=== PATIENT | male | born 2000 | race Caucasian/White ===

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

== ENCOUNTER 2022-03-14 02:18 | Emergency (ER) | payer MEDICAID, SELFPAY ==
[2022-03-14 02:34] VITALS: BP 128/53; PULSE 52; RESP 16; TEMP 36.8; O2SAT 98; BMI 28.9
--- NOTE | 2022-03-14 03:18 | ED.WOUNDLAC ---
HPI - Wound/Laceration General Chief Complaint: Extremity Injury, Lower Stated Complaint: finger laceration Time Seen by Provider: 03/14/22 02:49 Source: patient Mode of arrival: ambulatory History of Present Illness HPI narrative: cut R index finger on can of corn at home Onset (ago): minute(s) (prior to arrival ) Extremity Location: right: hand (index finger) Place: home Patient tetanus UTD: No Context: accidental (can of corn) Associated symptoms: pain Treatments prior to arrival: bandage Related Data Previous Rx's Medication Instructions Recorded acetaminophen 500 mg tablet 500 mg PO Q6H PRN pain or fever 12/12/20 (Tylenol Extra Strength) #20 tabs naproxen 500 mg tablet 500 mg PO BID PRN pain 10 days #20 12/12/20 tabs Allergies Allergy/AdvReac Type Severity Reaction Status Date / Time No Known Allergies Allergy Verified 09/19/21 13:21 Review of Systems Review of Systems: Constitutional : No Fever, No Chills, Cardiovascular : No Chest Pain, No SOB Respiratory : No Dyspnea Gastrointestinal : No abdominal pain Musculoskeletal : No Joint Swelling Skin : No rash, positive skin laceration Neuro : No Weakness, No Numbness PMFSH Past Medical History Medical History No known health problems Social History Social History (Updated 03/14/22 @ 03:26 by Breann Bonner DO) Patient Tobacco Use Status: Never used Tobacco Advance Directives: No Advance Directives Information Provided: Yes Current occupational status: other Current occupation: rt handed Physical Exam Vital Signs: Vital Signs: Last Vital Signs Temp 98.2 F 03/14/22 02:34 Pulse 52 03/14/22 02:34 Resp 16 03/14/22 02:34 BP 128/53 L 03/14/22 02:34 Pulse Ox 98 03/14/22 02:34 O2 Del Method 03/14/22 02:34 BMI result Body Mass Index 28.9 Appearance: Alert. Oriented X3. No acute distress. Eyes: Pupils equal, round and reactive to light. ENT: Pharynx normal. Neck: Normal inspection. Neck supple. CVS:Pulses normal. Respiratory: No respiratory distress. Skin: Skin warm and dry. Normal skin color. Extremities: No lower extremity edema. R index finger tip 1cm circular avulsion near nail wound edges approximated - NV intact Neuro: Oriented X 3. No motor deficit. No sensory deficit. MDM - Wound/Laceration MDM Narrative Medical decision making narrative: 22 yo male no PMH here with very superficial skin avulsion tip of R index finger from can of corn will require dermabond and update tdap. NV intact. Procedures Laceration Laceration 1: Site: hand (R index finger) Side (If applicable): right Size (cm): 1 Description: flap Depth: simple, single layer Pre-repair: wound explored and irrigated extensively Skin layer closed with: other (dermabond) Discharge Plan Discharge Clinical Impression: Avulsion of skin Patient Disposition: Home, Self-Care Instructions: Skin Avulsion (ED), Skin Adhesive Care (ED) Additional Instructions: return to ED for any worsening symptoms or concerns okay to get wet in 48 hours (only to shower or if soiled) otherwise keep clean and dry monitor for redness, fevers, yellow drainage glue will fall off in 5 to 7 days Prescriptions: No Action acetaminophen [Tylenol Extra Strength] 500 mg tablet 500 mg PO Q6H PRN (Reason: pain or fever) Qty: 20 0RF naproxen 500 mg tablet 500 mg PO BID PRN (Reason: pain) 10 Days Qty: 20 0RF
[2022-03-14] MEDS: Diphth,Pertus(ACell),Tet Adult 0.5 ML SYRINGE IM (03:31)
== END 2022-03-14 03:37 | disposition home or self-care (01) ==
PROVIDERS: Emergency Provider Emergency Medicine; PCP Nurse Practitioner Family
DX: S61.210A Laceration without foreign body of right index finger without damage to nail, initial encounter (principal); S60.410A Abrasion of right index finger, initial encounter; W26.8XXA Contact with other sharp object(s), not elsewhere classified, initial encounter; Y93.9 Activity, unspecified; Y92.9 Unspecified place or not applicable; Y99.9 Unspecified external cause status; Z79.899 Other long term (current) drug therapy
CPT/HCPCS: 12041; 90471; 90715; 99282; 99284

== ENCOUNTER 2022-05-16 13:56 | Emergency (ER) | payer MEDICAID, SELFPAY ==
[2022-05-16 13:57] VITALS: BP 149/53; PULSE 69; RESP 18; TEMP 36.4; O2SAT 98; BMI 25.7
--- NOTE | 2022-05-16 15:43 | ED_ITS ---
HPI - Extremity Injury (Lower) General Chief Complaint: Extremity Injury, Lower Stated Complaint: R leg pain Time Seen by Provider: 05/16/22 15:11 Source: patient Mode of arrival: ambulatory History of Present Illness HPI Narrative: 22-year-old male with no significant past medical history presenting to the ED complaining of right thigh pain/ spasming and tightening up s/p lifting weights at the gym. States played basketball for 2 hours and was doing leg exercises 1 quad tightened up. Reports symptomatic improvement at present. Denies direct trauma, fall, injury, numbness, tingling, weakness complaint: thigh injury Onset (ago): hour(s) Related Data Previous Rx's Medication Instructions Recorded acetaminophen 500 mg tablet 500 mg PO Q6H PRN pain or fever 12/12/20 (Tylenol Extra Strength) #20 tabs naproxen 500 mg tablet 500 mg PO BID PRN pain 10 days #20 12/12/20 tabs acetaminophen 500 mg tablet 500 mg PO Q6H PRN fever or pain 05/16/22 (Tylenol Extra Strength) #14 tabs cyclobenzaprine 5 mg tablet 5 mg PO Q8H PRN pain (scale score 05/16/22 7-10) 5 days #14 tabs lidocaine 5 % topical patch 1 patch topical DAILY PRN pain #30 05/16/22 (Lidoderm) ea naproxen 500 mg tablet 500 mg PO BID PRN pain 10 days #20 05/16/22 tabs Allergies Allergy/AdvReac Type Severity Reaction Status Date / Time No Known Allergies Allergy Verified 09/19/21 13:21 Review of Systems Review of Systems: Constitutional: No Fever, No Chills ENT/Mouth: No Ear Pain, No Hoarseness, No sore throat, No Rhinorrhea, No Swallowing Difficulty Cardiovascular: No Chest Pain, No SOB Respiratory: No Cough, No Sputum Gastrointestinal: No Nausea, No Vomiting, No Diarrhea, No Constipation, No Abdominal pain Genitourinary: No Dysuria, No Urinary Frequency, No Urinary Incontinence/retention Musculoskeletal: No joint pain, + Myalgias, No Joint Swelling Skin: No Skin Lesions, No rash Neuro: No Weakness, No Numbness, No Paresthesias Yes all other systems are reviewed and are negative Constitutional: Constitutional: Reports as per [facility] Past Medical History Attestation statement: The following information was validated with the patient. Medical History No known health problems Social History Social History Patient Tobacco Use Status: Never used Tobacco Advance Directives: No Advance Directives Information Provided: Yes Current occupational status: other Current occupation: rt handed Physical Exam Vital Signs: Vital Signs: Last Vital Signs Temp 97.5 F 05/16/22 13:57 Pulse 69 05/16/22 13:57 Resp 18 05/16/22 13:57 BP 149/53 H 05/16/22 13:57 Pulse Ox 98 05/16/22 13:57 O2 Del Method 05/16/22 13:57 BMI result Body Mass Index 25.7 Const: General: cooperative, healthy appearing and no acute distress Orientation/consciousness: patient oriented x3 Limitations: no limitations HEENT: Head: Yes normal to inspection and Yes atraumatic Ears: hearing grossly normal bilaterally General nose exam: Normal external nose present Face and sinus: Yes normal facial exam Eyes: General: appearance normal, both eyes and all related structures EOM: EOMs intact bilaterally Neck: Neck: Yes normal visual inspection and Yes no meningeal signs Resp: Effort & Inspection: normal respiratory effort and no respiratory distress Cardio: Rate: regular rate Heart sounds: S1 normal heart sound present and S2 normal heart sound present Peripheral pulses: Peripheral pulses 2+ throughout Skin: Rashes: no rashes Wounds: no wounds Neuro: General: patient oriented x3, gait normal, tone normal, moves all extremities, no meningeal signs and no focal motor deficits Gait exam (Neuro): Normal gait present Motor exam (neuro): 5/5 motor strength present throughout Extrem: Other: Right medial distal thigh with mild tenderness. No swelling/erythema/ecchymosis or streaking. FROM intact. Neurovascularly intact. No groin tenderness Hip/ knee/ tib fib/ankle/ foot nontender MDM - Extremity Injury (Lower) MDM Narrative Medical decision making narrative: 22-year-old male with no significant past medical history presenting to the ED complaining of right thigh pain/ spasming and tightening up s/p lifting weights at the gym. on exam vital signs stable, NAD, nontoxic appearing, physical exam as above with mild quadriceps tenderness. Full range of motion to lower extremity intact. Concern for muscle strain/ partial tear. Low suspicion for tendon rupture or ligamental/meniscal injury. Compartments soft no evidence of compartment syndrome at this time plan: IM Toradol Medical Records Attestation: I reviewed the patient's medical records. Lab Data Attestation: I reviewed the patient's lab results. Discharge Plan Discharge Clinical Impression: Muscle strain Patient Disposition: Home, Self-Care Instructions: Muscle Strain (ED), Leg Cramps (ED) Additional Instructions: Your pain is likely musculoskeletal avoid any heavy lifting or dedicated leg exercises for 1 week Flexeril is a muscle relaxer, take at night as it makes you drowsy, do not drive, drink alcohol, or operate machinery while taking it Naproxen as an anti-inflammatory / pain medication, take with food Lidoderm patches are numbing patches, apply to painful area In addition take Tylenol at home please follow-up with her primary care doctor. If symptoms persist or worsen return to the emergency department Prescriptions: New acetaminophen [Tylenol Extra Strength] 500 mg tablet 500 mg PO Q6H PRN (Reason: fever or pain) Qty: 14 0RF lidocaine [Lidoderm] 5 % adhesive patch,medicated 1 patch topical DAILY MDD remove after 12 hours PRN (Reason: pain) Qty: 30 0RF Rx Instructions: leave on most painful area for up to 12 hrs naproxen 500 mg tablet 500 mg PO BID PRN (Reason: pain) 10 Days Qty: 20 0RF cyclobenzaprine 5 mg tablet 5 mg PO Q8H PRN (Reason: pain (scale score 7-10)) 5 Days Qty: 14 0RF No Action acetaminophen [Tylenol Extra Strength] 500 mg tablet 500 mg PO Q6H PRN (Reason: pain or fever) Qty: 20 0RF naproxen 500 mg tablet 500 mg PO BID PRN (Reason: pain) 10 Days Qty: 20 0RF Referrals: Reina Obrien NP [Primary Care Provider] - 1 week
[2022-05-16] MEDS: Ketorolac Tromethamine 30 MG/ML VIAL IM (16:32)
== END 2022-05-16 16:43 | disposition home or self-care (01) ==
PROVIDERS: Emergency Provider Student in an Organized Health Care Education/Training Program; PCP Nurse Practitioner Family
DX: M79.604 Pain in right leg (principal); Z79.899 Other long term (current) drug therapy
CPT/HCPCS: 99283; 99284; J1885

== ENCOUNTER 2022-10-30 02:50 | Emergency (ER) | payer MEDICAID, SELFPAY ==
--- NOTE | ~2022-10-30 | XR_ITS ---
EXAMINATION: XR ANKLE, LEFT CLINICAL INFORMATION: Injury COMPARISON: None available. TECHNIQUE: AP, lateral, and mortise views of the left ankle. FINDINGS: No fracture or dislocation. Ankle mortise is congruent. No ankle joint effusion. The soft tissues are unremarkable. XR/XR ankle LT min 3V IMPRESSION: Normal left ankle.
[2022-10-30 03:00] VITALS: BP 117/54; PULSE 53; RESP 19; TEMP 36.6; O2SAT 95; BMI 26.3
--- NOTE | 2022-10-30 03:18 | ED_ITS ---
HPI - Extremity Injury (Lower) General Chief Complaint: Extremity Injury, Lower Stated Complaint: sprained ankle/foot Time Seen by Provider: 10/30/22 03:15 Source: patient Mode of arrival: ambulatory Limitations: no limitations History of Present Illness HPI Narrative: Patient apparently was playing basketball 10/23 landed on his left foot twisted since then having pain on the outer aspect of the left ankle with bruising using crutches for ambulation is still having the pain has not seen any MD for pain Related Data Previous Rx's Medication Instructions Recorded acetaminophen 500 mg tablet 500 mg PO Q6H PRN pain or fever 12/12/20 (Tylenol Extra Strength) #20 tabs naproxen 500 mg tablet 500 mg PO BID PRN pain 10 days #20 12/12/20 tabs acetaminophen 500 mg tablet 500 mg PO Q6H PRN fever or pain 05/16/22 (Tylenol Extra Strength) #14 tabs cyclobenzaprine 5 mg tablet 5 mg PO Q8H PRN pain (scale score 05/16/22 7-10) 5 days #14 tabs lidocaine 5 % topical patch 1 patch topical DAILY PRN pain #30 05/16/22 (Lidoderm) ea naproxen 500 mg tablet 500 mg PO BID PRN pain 10 days #20 05/16/22 tabs ibuprofen 600 mg tablet 600 mg PO Q6H PRN fever or pain 10/30/22 #30 tabs Allergies Allergy/AdvReac Type Severity Reaction Status Date / Time No Known Allergies Allergy Verified 09/19/21 13:21 Review of Systems Review of Systems: Yes all other systems are reviewed and are negative PMFSH Past Medical History Medical History No known health problems Social History Social History Patient Tobacco Use Status: Never used Tobacco Current occupational status: other Current occupation: rt handed Physical Exam Vital Signs: Vital Signs: Last Vital Signs Temp 97.9 F 10/30/22 03:00 Pulse 53 10/30/22 03:00 Resp 19 10/30/22 03:00 BP 117/54 L 10/30/22 03:00 Pulse Ox 95 10/30/22 03:00 O2 Del Method Room Air 04/27/23 03:00 BMI result Body Mass Index 26.3 Extrem: Ankle/foot/toe images: 1. Swelling and diffuse tenderness no deformity good range of movement neurovascular intact Medical Decision Making Medical Decision Making [facility] Narrative: X-ray negative for fracture jones wrap was applied patient advised to use Jones wrap and take ibuprofen for pain for ankle sprain Discharge Plan Discharge Clinical Impression: Left ankle sprain Patient Disposition: Home, Self-Care Instructions: Ankle Sprain (ED) Additional Instructions: Wear Jones wrap for support Use crutches for ambulation Ibuprofen for pain Prescriptions: New ibuprofen 600 mg tablet 600 mg PO Q6H PRN (Reason: fever or pain) Qty: 30 0RF No Action acetaminophen [Tylenol Extra Strength] 500 mg tablet 500 mg PO Q6H PRN (Reason: pain or fever) Qty: 20 0RF naproxen 500 mg tablet 500 mg PO BID PRN (Reason: pain) 10 Days Qty: 20 0RF acetaminophen [Tylenol Extra Strength] 500 mg tablet 500 mg PO Q6H PRN (Reason: fever or pain) Qty: 14 0RF lidocaine [Lidoderm] 5 % adhesive patch,medicated 1 patch topical DAILY MDD remove after 12 hours PRN (Reason: pain) Qty: 30 0RF Rx Instructions: leave on most painful area for up to 12 hrs naproxen 500 mg tablet 500 mg PO BID PRN (Reason: pain) 10 Days Qty: 20 0RF cyclobenzaprine 5 mg tablet 5 mg PO Q8H PRN (Reason: pain (scale score 7-10)) 5 Days Qty: 14 0RF
[2022-10-30] MEDS: Ibuprofen 600 MG TABLET PO (03:50)
== END 2022-10-30 03:54 | disposition home or self-care (01) ==
PROVIDERS: Emergency Provider Internal Medicine
DX: S93.402A Sprain of unspecified ligament of left ankle, initial encounter (principal); X50.1XXA Overexertion from prolonged static or awkward postures, initial encounter; Y93.67 Activity, basketball; Y92.310 Basketball court as the place of occurrence of the external cause; Y99.9 Unspecified external cause status
CPT/HCPCS: 73610; 99283